=== PATIENT | male | born 1980 | race African-American/Black ===

== ENCOUNTER 2018-04-19 19:22 | Emergency (ER) | payer SELFPAY | END 2018-04-19 19:56 | disposition home or self-care (01) | LOC: ERS 19:22 | DX: F16.10 Hallucinogen abuse, uncomplicated (principal); F17.210 Nicotine dependence, cigarettes, uncomplicated | CPT/HCPCS: 99283 ==

== ENCOUNTER 2021-04-04 04:42 | Emergency (ER) | payer SELFPAY ==
[2021-04-04] MEDS ORDERED: Lidocaine 1% w/Epinephrine 1:100K 20 ML VIAL ONE (05:03)
[2021-04-04] MEDS ORDERED: Boostrix 0.5 ML (Tdap) VIAL ONE (05:06)
== END 2021-04-04 07:05 | disposition home or self-care (01) ==
LOC: ERS 04:42
DX: S01.111A Laceration without foreign body of right eyelid and periocular area, initial encounter (principal); S01.311A Laceration without foreign body of right ear, initial encounter; F17.210 Nicotine dependence, cigarettes, uncomplicated; Z23 Encounter for immunization; W22.8XXA Striking against or struck by other objects, initial encounter
CPT/HCPCS: 12014; 70450; 90471; 90715